=== PATIENT | female | born 1990 | race African-American/Black ===

== ENCOUNTER 2019-09-18 12:20 | Emergency (ER) | payer OTHER ==
[~2019-09-18] VITALS: Ht 165.1 cm; Wt 63.5 kg
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
--- NOTE | 2019-09-18 13:04 | NUR ---
ED [facility] UNIT # [id number], OFFICER [id number] AND [id number] AT BEDSIDE FOR INVESTIGATION
--- NOTE | 2019-09-18 13:18 | NUR ---
GILMA SHORT AT BEDSIDE
[2019-09-18] MEDS ORDERED: FLUORESCEIN SODIUM OPHTH 1 EA STRIP ONE (13:40)
[2019-09-18] MEDS ORDERED: TDAP [DIPH/PERTUSSIS/TET] 0.5 ML VIAL IM ONE (13:41)
[2019-09-18] MEDS ORDERED: ACETAMINOPHEN ES 500 MG TABLET ONE (13:41)
[2019-09-18] MEDS: TETRACAINE HCL 0.5% OPHTALMIC 15 ML BOTTLE OP ONE (13:48)
[2019-09-18] MEDS: FLUORESCEIN SODIUM OPHTH 1 EA STRIP OP ONE (13:48)
[2019-09-18] MEDS: TDAP [DIPH/PERTUSSIS/TET] 0.5 ML VIAL IM ONE (13:49)
[2019-09-18] MEDS: ACETAMINOPHEN 325 MG TABLET PO ONE (13:50)
[2019-09-18] MEDS ORDERED: KETOROLAC TROMETHAMINE INJ 30 MG/ML VIAL ONE (15:35)
[2019-09-18] MEDS: KETOROLAC TROMETHAMINE INJ 60 MG/2 ML VIAL IM ONE (15:39)
--- NOTE | 2019-09-18 16:02 | NUR ---
Patient discharged to home in stable condition. Written and verbal after care instructions given. Patient verbalizes understanding of instruction.
[2019-09-18 16:06] VITALS: BP 124/82
== END 2019-09-18 16:06 | disposition home or self-care (01) ==
LOC: ER 12:23
DX: S05.11XA Contusion of eyeball and orbital tissues, right eye, initial encounter (principal); R55 Syncope and collapse; I10 Essential (primary) hypertension; Z88.0 Allergy status to penicillin; V49.49XA Driver injured in collision with other motor vehicles in traffic accident, initial encounter; Y93.89 Activity, other specified; Y92.413 State road as the place of occurrence of the external cause; Y99.8 Other external cause status
CPT/HCPCS: 70450; 70486; 84703; 90471; 90715; 96372; 99284; J1885

== ENCOUNTER 2020-06-11 13:45 | Emergency (ER) | payer OTHER ==
[~2020-06-11] VITALS: Ht 165.1 cm; Wt 61.2 kg
--- NOTE | 2020-06-11 13:45 | NUR ---
PT BIB SELF C/O LOWER ABDOMINAL PAIN. PT IS AAOX4, NOT IN RESPIRATORY DISTRESS, V/S STABLE, KEPT RESTED AND COMFORTABLE. WILL CONTINUE TO MONITOR.
--- NOTE | 2020-06-11 14:10 | NUR ---
URINE SPECIMEN COLLECTED AND SENT TO LAB.
--- NOTE | 2020-06-11 15:13 | NUR ---
SEEN AND EXAMINED BY DR. PARDO.
--- NOTE | 2020-06-11 15:23 | NUR ---
IV LINE ESTABLISHED BLOOD DRAWN AND SENT TO LAB.
[2020-06-11] MEDS: IV NS 0.9% 1,000 ML BAG IV ONE (15:28)
[2020-06-11 15:40] LABS: BASOPHILS # (AUTO) 0.1 /CMM (0.0-0.2); BASOPHILS % (AUTO) 0.9 % (0.0-2.0); EOSINOPHILS % (AUTO) 0.4 % (0.0-6.0); HEMATOCRIT 41 % (33-45); HEMOGLOBIN 13.4 g/dL (11.5-14.8); LYMPHOCYTES # (AUTO) 1.1 /CMM (0.8-4.8); LYMPHOCYTES % (AUTO) 16.8 % (20.0-44.0); MEAN CORPUSCULAR HGB CONC 33 g/dl (31.0-36.0); MEAN CORPUSCULAR VOLUME 96 fL (82-100); MONOCYTES # (AUTO) 0.6 /CMM (0.1-1.30); MONOCYTES % (AUTO) 8.4 % (2.0-12.0); NEUTROPHILS % (AUTO) 73.5 % (43.0-81.0); PLATELET COUNT (AUTO) 177 /CMM (150-450); RED BLOOD CELL COUNT(AUTO) 4.27 MIL/uL (4.0-5.2); WHITE BLOOD COUNT (AUTO) 6.8 K/uL (4.3-11.0)
[2020-06-11 15:44] LABS: APPEARANCE,URINE CLEAR (CLEAR); BILIRUBIN,URINE NEGATIVE (NEGATIVE); BLOOD, URINE NEGATIVE Ery/uL (NEGATIVE); COLOR,URINE YELLOW (YELLOW); KETONES,URINE TRACE (NEGATIVE); LEUKOCYTE ESTERASE ,URINE NEGATIVE (NEGATIVE); NITRITE, URINE NEGATIVE (NEGATIVE); PROTEIN,URINE TRACE mg/dl (NEGATIVE); UGLUCOSE NEGATIVE (NEGATIVE); UROBILINOGEN,URINE 0.2 EU/dL (0.2)
[2020-06-11 15:47] LABS: CALCIUM, SERUM 9.1 mg/dL (8.5-10.1); POTASSIUM 3.7 mmol/L (3.5-5.1)
[2020-06-11 15:50] LABS: BACTERIA,URINE None seen /HPF (None Seen); RBC,URINE 0-2 /HPF (0-2); SQUAMOUS EPITHELIAL CELL,UR Few /HPF (None Seen); WBC,URINE 0-2 /HPF (0-3)
[2020-06-11 15:53] LABS: ALBUMIN 3.8 g/dL (3.4-5.0); BILIRUBIN,DIRECT 0.1 mg/dL (0.0-0.2); BILIRUBIN,TOTAL 0.5 mg/dL (0.2-1.0); TOTAL PROTEIN, SERUM 8.6 g/dL (6.4-8.2)
[2020-06-11 16:48] VITALS: BP 100/72
--- NOTE | 2020-06-11 16:53 | NUR ---
Patient discharged to home in stable condition. Written and verbal after care instructions given. Patient verbalizes understanding of instruction.
== END 2020-06-11 16:54 | disposition home or self-care (01) ==
LOC: ER 13:49
DX: N83.202 Unspecified ovarian cyst, left side (principal); N94.19 Other specified dyspareunia; I95.9 Hypotension, unspecified; Z88.0 Allergy status to penicillin
CPT/HCPCS: 36415; 76856-TC; 80048-TC; 80076-TC; 81000-TC; 83690-TC; 84703-TC; 85025-TC

== ENCOUNTER 2020-11-28 08:55 | Emergency (ER) | payer OTHER ==
[~2020-11-28] VITALS: Ht 165.1 cm; Wt 55.3 kg
[2020-11-28 09:04] VITALS: BP 103/72
[2020-11-28] MEDS ORDERED: CLOT15CR27 TP (09:17)
[2020-11-28] MEDS ORDERED: MUPI22OI2 TP (09:17)
[2020-11-28] MEDS ORDERED: CEPH500C2 PO (09:17)
--- NOTE | 2020-11-28 09:25 | NUR ---
Patient discharged to home in stable condition. Written and verbal after care instructions given. Patient verbalizes understanding of instruction.
== END 2020-11-28 09:29 | disposition home or self-care (01) ==
LOC: ER 08:56
DX: L30.9 Dermatitis, unspecified (principal); R21 Rash and other nonspecific skin eruption; Z76.0 Encounter for issue of repeat prescription; Z88.0 Allergy status to penicillin; Z79.899 Other long term (current) drug therapy

== ENCOUNTER → 2021-01-24 | Emergency (ER) | payer OTHER ==
[~2021-01-24] VITALS: Ht 165.1 cm; Wt 55.3 kg
[~2021-01-24] MED LIST: CEPH500C2 PO; CLIN300C12 PO; CLOT15CR27 TP; IBUP-1957 PO; MUPI22OI2 TP
[2021-01-24 03:46] VITALS: BP 100/68
--- NOTE | 2021-01-24 03:50 | NUR ---
pt bibself c/o of two abscesses on her jaw. Pt aaox4 breathing evenly and unlabored. Pt states that the abscess pain radiates to both ears. Pt has dental appointment on monday and took ibuprofen at 2300. Pt skin warm, dry, and intact. Pt attached to monitor and pox. Pt given blanekt and call light within reach
--- NOTE | 2021-01-24 04:05 | NUR ---
Patient discharged to home in stable condition. Written and verbal after care instructions given. Patient verbalizes understanding of instruction.Pt ambulatory with a steady gait
== END | disposition home or self-care (01) ==
LOC: ER 03:26
DX: K04.7 Periapical abscess without sinus (principal); Z88.0 Allergy status to penicillin; Z79.899 Other long term (current) drug therapy

== ENCOUNTER → 2021-10-14 | Emergency (ER) | payer OTHER ==
[~2021-10-14] VITALS: Ht 165.1 cm; Wt 54.4 kg
[~2021-10-14] MED LIST changes: +CLIN150C16 PO
[2021-10-14 13:22] VITALS: BP 98/68
--- NOTE | 2021-10-14 13:35 | NUR ---
Patient discharged to home in stable condition. Written and verbal after care instructions given. Patient verbalizes understanding of instruction.
--- NOTE | 2021-10-14 13:35 | NUR ---
[facility]
== END | disposition home or self-care (01) ==
LOC: ER 14:57
DX: L03.011 Cellulitis of right finger (principal); Z88.0 Allergy status to penicillin